=== PATIENT | female | born 1950 ===

== ENCOUNTER 2024-05-26 08:45 | Inpatient (IN) | payer OTHER ==
[~2024-05-26] VITALS: Ht 162.6 cm; Wt 94.8 kg
[2024-05-26 12:26] LABS: URINE BILIRRUBIN Negative (NEGATIVE); URINE BLOOD Negative; URINE COLOR Yellow; URINE KETONE Negative (NEGATIVE); URINE LEUKOCYTE Negative; URINE NITRATE Negative; URINE PROTEIN Negative (NEGATIVE); URINE UROBILINOGEN 0.2 E.U./dl
[2024-05-26 12:30] LABS: URINE BACTERIA 57.8 uL (0.0-1933); URINE EPITHELIAL CELLS 6.7 uL (0.0-38.8); URINE RBC 9.6 uL (0.0-20.8); URINE WBC 14.9 uL (0.0-23.2)
[2024-05-26] MEDS ORDERED: SYNTHROID100 MCG PO (12:31)
[2024-05-26] MEDS ORDERED: CHOLESTYRAMINE R5 GM PO (12:32)
[2024-05-26] MEDS ORDERED: TOPROL XL50 M1 PO (12:32)
[2024-05-26] MEDS ORDERED: AVAPRO300 MG PO (12:32)
[2024-05-26] MEDS ORDERED: GRALISE600 MG PO (12:33)
[2024-05-26] MEDS ORDERED: TRIJARDY XR 5-1 EACH PO (12:33)
[2024-05-26] MEDS ORDERED: SIMVASTATIN40 MG PO (12:33)
[2024-05-26 12:34] LABS: URINE APPEARANCE CLEAR; URINE GLUCOSE >=1000 MG/DL (NEGATIVE)
[2024-05-26 12:34] LABS: HEMATOCRIT 38.1 % (36.0-45.00); HEMOGLOBIN 13.7 g/dL (12.0-15.00); MEAN CELL VOLUME 90.9 fL (80.00-100.00); MEAN CORPUSCULAR HEMOGLOBIN 32.6 pg (27.00-32.0); MEAN CORPUSCULAR HGB CONC 35.9 g/dl (32.0-36.0); PLATELET COUNT 260 K/uL (150-450); RED BLOOD COUNT 4.19 M/uL (4.00-6.00); RED CELL DISTRIBUTION WIDTH 13.2 % (11.5-14.5)
[2024-05-26] MEDS ORDERED: HUMALOG100 UNIT/2 (12:34)
[2024-05-26] MEDS ORDERED: HUMULIN N100 UNIT/2 IM (12:34)
[2024-05-26 12:59] LABS: ALBUMIN 4.1 gm/dL (3.4-5.0); BILIRUBIN TOTAL 0.6 mg/dL (0.3-1.2); CALCIUM 10.1 mg/dL (8.5-10.1); CREATININE SERUM 0.97 mg/dL (0.55-1.02); GFR 56.29; GLOBULINA 3.7 G/DL (2.4-3.5); POTASSIUM 4.77 mEq/L (3.5-5.1); TOTAL PROTEIN 7.8 gm/dL (6.4-8.2)
[2024-05-26 13:26] LABS: INR 0.99; PARTIAL THROMBOPLASTIN TIME 25.7 SECONDS (22.0-34.0); PROTHROMBIN TIME 10.4 SECONDS (9.0-11.5)
[2024-05-31] MEDS ORDERED: POLYMYXIN B SULFATE 500,000 U VIAL IR ONE (17:45)
[2024-05-31] MEDS ORDERED: TRANEXAMIC ACID 100MG/1ML (1000MG) AMPUL IV ONE ×2 (17:45)
[2024-05-31] MEDS ORDERED: CEFAZOLIN SODIUM 1,000 MG VIAL IV ONE (17:45)
[2024-05-31] MEDS ORDERED: POVIDONE-IODINE 0.75 OZ PACKET TOP ONE (17:45)
[2024-05-31] MEDS ORDERED: BUPIVACAINE HCL 30 ML VIAL IJ ONE (17:45)
[2024-05-31] MEDS ORDERED: LIDOCAINE HCL 1%/EPINEPHRINE 20ML VIAL IJ ONE (17:45)
[2024-05-31] MEDS ORDERED: ISOPROPYL ALCOHOL 30 ML OUNCE TOP ONE (17:45)
[2024-05-31] MEDS ORDERED: MORPHINE SULFATE 4 MG/ML VIAL IV ONE (17:45)
[2024-05-31] MEDS ORDERED: KETOROLAC TROMETHAMINE 60 MG VIAL IM ONE (17:45)
[2024-05-31] MEDS ORDERED: SODIUM CHLORIDE 0.45 % 1,000 ML IV SCH (19:15)
[2024-05-31] MEDS ORDERED: MORPHINE SULFATE 2 MG/ML CARTRIDGE IV NR (19:15)
[2024-05-31] MEDS ORDERED: MORPHINE SULFATE 4 MG/ML CARTRIDGE IV PRN (19:15)
[2024-05-31] MEDS ORDERED: ONDANSETRON HCL 2 MG/ML VIAL IV PRN (19:15)
[2024-05-31] MEDS ORDERED: GENTAMICIN SULFATE 40 MG/ML VIAL IV SCH (21:00)
[2024-05-31 22:16] LABS: HEMATOCRIT 36.7 % (36.0-45.00); HEMOGLOBIN 12.7 g/dL (12.0-15.00); RED BLOOD COUNT 3.98 M/uL (4.00-6.00)
[2024-06-01] MEDS ORDERED: CEFAZOLIN SODIUM 1,000 MG VIAL IV SCH
[2024-06-01 00:49] LABS: HEMATOCRIT 34.3 % (36.0-45.00); HEMOGLOBIN 11.7 g/dL (12.0-15.00); MEAN CELL VOLUME 92.1 fL (80.00-100.00); MEAN CORPUSCULAR HEMOGLOBIN 31.3 pg (27.00-32.0); PLATELET COUNT 222 K/uL (150-450); RED BLOOD COUNT 3.72 M/uL (4.00-6.00); RED CELL DISTRIBUTION WIDTH 13.3 % (11.5-14.5)
[2024-06-01] MEDS ORDERED: LEVOTHYROXINE SODIUM 100 MCG TABLET PO SCH (06:00)
[2024-06-01] MEDS ORDERED: TRAMADOL HCL 50 MG TABLET PO PRN (08:15)
[2024-06-01] MEDS ORDERED: BACITRACIN 28.35 GM OINT.TUBE TOP SCH (09:00)
[2024-06-01] MEDS ORDERED: IRON FUM,PS/FOLIC/BCOMP,C NO.9 1 CAP CAPSULE PO SCH (09:00)
[2024-06-01] MEDS ORDERED: IRBESARTAN 300 MG TABLET PO SCH (09:00)
[2024-06-01] MEDS ORDERED: METOPROLOL SUCCINATE 50 MG TAB.SR.24H PO SCH (09:00)
[2024-06-01] MEDS ORDERED: RIVAROXABAN 10 MG TAB PO SCH (09:00)
[2024-06-01] MEDS ORDERED: SENNA/DOCUSATE SODIUM 1 TAB TABLET PO SCH (09:00)
[2024-06-01] MEDS ORDERED: DEXTROSE 50 % IN WATER 0.5 G/ML DISP.SYRIN IV PRN (13:00)
[2024-06-01] MEDS ORDERED: INSULIN LISPRO 1,000 UNIT/10 ML UNITS SUBCUTANEO PRN (13:00)
[2024-06-01] MEDS ORDERED: SIMVASTATIN 40 MG TABLET PO SCH (17:00)
[2024-06-02 01:14] LABS: HEMATOCRIT 31.1 % (36.0-45.00); HEMOGLOBIN 10.7 g/dL (12.0-15.00); MEAN CELL VOLUME 90.7 fL (80.00-100.00); MEAN CORPUSCULAR HEMOGLOBIN 31.2 pg (27.00-32.0); MEAN CORPUSCULAR HGB CONC 34.4 g/dl (32.0-36.0); PLATELET COUNT 216 K/uL (150-450); RED BLOOD COUNT 3.43 M/uL (4.00-6.00); RED CELL DISTRIBUTION WIDTH 13.5 % (11.5-14.5)
[2024-06-02] MEDS ORDERED: INTEGRA PLUS C1 EACH PO (06:40)
[2024-06-02] MEDS ORDERED: XARELTO10 MG PO (06:40)
[2024-06-02] MEDS ORDERED: Septra Ds Tablet PO (06:40)
[2024-06-02] MEDS ORDERED: TRAMADOL HCL50 MG PO (06:40)
[2024-06-02] MEDS ORDERED: SULFAMETHOXAZOLE/TRIMETHOPRIM DS 1 TAB PO SCH (09:00)
[2024-06-02 13:03] LABS: CALCIUM 8.7 mg/dL (8.5-10.1); CREATININE SERUM 1.01 mg/dL (0.55-1.02); GFR 53.73; POTASSIUM 4.86 mEq/L (3.5-5.1)
== END 2024-06-02 18:54 | disposition home or self-care (01) | DRG 470 ==
LOC: OB/GYN 05-31 05:10 → O/R 05-31 05:10 → SURH 05-31 05:10 → O/R 05-31 15:01 → OB/GYN 05-31 20:05
PROVIDERS: ADMIT Orthopaedic Surgery Sports Medicine; ATTEND Orthopaedic Surgery Sports Medicine
PROC: 0SRD0J9 Replacement of Left Knee Joint with Synthetic Substitute, Cemented, Open Approach (ICD-10-PCS; principal; 2024-05-31 11:45)
DX: M17.12 Unilateral primary osteoarthritis, left knee (principal)

== ENCOUNTER 2024-05-26 11:18 | Outpatient (CLI) | payer OTHER ==
[2024-05-26] MEDS ORDERED: SYNTHROID100 MCG PO (12:31)
[2024-05-26] MEDS ORDERED: AVAPRO300 MG PO (12:32)
[2024-05-26] MEDS ORDERED: TOPROL XL50 M1 PO (12:32)
[2024-05-26] MEDS ORDERED: CHOLESTYRAMINE R5 GM PO (12:32)
[2024-05-26] MEDS ORDERED: GRALISE600 MG PO (12:33)
[2024-05-26] MEDS ORDERED: TRIJARDY XR 5-1 EACH PO (12:33)
[2024-05-26] MEDS ORDERED: SIMVASTATIN40 MG PO (12:33)
[2024-05-26] MEDS ORDERED: HUMULIN N100 UNIT/2 IM (12:34)
[2024-05-26] MEDS ORDERED: HUMALOG100 UNIT/2 (12:34)
== END 2024-05-26 11:44 | disposition home or self-care (01) ==
LOC: LAB 11:18
PROVIDERS: ATTEND Orthopaedic Surgery Sports Medicine
DX: Z20.822 Contact with and (suspected) exposure to COVID-19 (principal); D68.9 Coagulation defect, unspecified; Z01.818 Encounter for other preprocedural examination; I10 Essential (primary) hypertension